=== PATIENT | female | born 1980 | race Caucasian/White ===

== ENCOUNTER 2018-08-07 21:13 | Emergency (ER) | payer OTHER ==
[~2018-08-07] VITALS: Ht 160 cm; Wt 59.0 kg
[~2018-08-07 21:13] MED LIST: ACET325 PO; ANTOXYBENA RIGHTEAR; Bactrim Ds Tab1 EACH PO; CEPH500 PO; CYCL10 PO; Cleocin HCl300 MG PO; DOXY100 PO; HYDACE5; HYDACE5 PO; HYDR1TAB94 PO; IBUP600 PO; IBUP800 PO; LEVFLO500 PO; MELA3 PO; METPRE4DP PO; METR250 PO; NAPR500 PO; Naprosyn500 MG PO; Norco 5-325 Ta1 EACH PO; OXYACE5T PO; PROACE100 PO; PROM25 PO; Percocet 5-3251 EACH PO; RXCYCL10 PO; RXHYDACE PO; RXPROACE PO; SULTRIDS PO; TRAM50 PO
[2018-08-07] MEDS ORDERED: ALBU90OI INH (23:17)
[2018-08-07] MEDS ORDERED: Zithromax250 MG PO (23:17)
[2018-08-07] MEDS ORDERED: Prednisone20 MG PO (23:17)
== END 2018-08-07 23:42 | disposition home or self-care (01) ==
LOC: ER 21:13
DX: R07.89 Other chest pain (principal); R06.02 Shortness of breath; R05 Cough; F17.200 Nicotine dependence, unspecified, uncomplicated; Z88.0 Allergy status to penicillin
CPT/HCPCS: 71046; 94644; 99285-25

== ENCOUNTER 2020-11-10 12:03 | Emergency (ER) | payer OTHER ==
[~2020-11-10] VITALS: Ht 160 cm; Wt 59.0 kg
[~2020-11-10 12:03] MED LIST changes: +ALBU90OI INH; +Prednisone20 MG PO; +Zithromax250 MG PO
[2020-11-10] MEDS ORDERED: IBUP800 PO (13:56)
[2020-11-10] MEDS ORDERED: Robaxin750 MG PO (13:56)
== END 2020-11-10 14:10 | disposition home or self-care (01) ==
LOC: ER 12:03
DX: S46.911A Strain of unspecified muscle, fascia and tendon at shoulder and upper arm level, right arm, initial encounter (principal); F17.210 Nicotine dependence, cigarettes, uncomplicated; Z88.0 Allergy status to penicillin; Z79.52 Long term (current) use of systemic steroids; Z79.899 Other long term (current) drug therapy
CPT/HCPCS: 96372; 99282-25; J1885